=== PATIENT | female | born 1985 | race Caucasian/White ===

== ENCOUNTER → 2018-01-19 | Outpatient (CLI) | payer OTHER ==
[~2018-01-19] MED LIST: AMOX250S73 PO; HYDR473S9 PO; NORG1TAB74 PO
--- NOTE | 2018-01-19 15:30 | EKG ---
FACILITY: [facility] PATIENT NAME: MIREILLE AUSTIN : [id number] MR: [id number] V: [id number] EXAM DATE: ORDERING PHYSICIAN: ABELARDO HORNER TECHNOLOGIST: ENRICO Hanna Reason : TACHY Blood Pressure : / mmHG Vent. Rate : 078 BPM Atrial Rate : 078 BPM P-R Int : 142 ms QRS Dur : 080 ms QT Int : 376 ms P-R-T Axes : 060 030 040 degrees QTc Int : 428 ms Normal sinus rhythm No ST-T abnormalities No previous ECGs available Confirmed by ENRIQUE DEUTSCH ([id number]) on 01/19/2018 4:49:51 PM Referred By: EVENS Confirmed By:ENRIQUE DEUTSCH
== END ==
LOC: RESP 15:00
PROVIDERS: ATTEND Physician Assistant
DX: R00.2 Palpitations (principal); Z3A.30 30 weeks gestation of pregnancy
CPT/HCPCS: 93005

== ENCOUNTER → 2018-03-01 | Outpatient (CLI) | payer OTHER ==
[~2018-03-01] MED LIST changes: +PREN-127 PO
== END ==
LOC: LAB 09:07
PROVIDERS: ATTEND Student in an Organized Health Care Education/Training Program
DX: Z34.83 Encounter for supervision of other normal pregnancy, third trimester (principal)
CPT/HCPCS: 87081

== ENCOUNTER → 2018-03-15 | Outpatient (CLI) | payer OTHER | LOC: LAB 09:55 | PROVIDERS: ATTEND Student in an Organized Health Care Education/Training Program | DX: O42.919 Preterm premature rupture of membranes, unspecified as to length of time between rupture and onset of labor, unspecified trimester (principal) | CPT/HCPCS: 84112 ==

== ENCOUNTER 2018-03-30 19:35 | Inpatient (IN) | payer OTHER ==
[~2018-03-30] VITALS: Ht 157.5 cm; Wt 60.3 kg
[2018-03-30] MEDS ORDERED: FAMOTIDINE(*) 20MG/50ML PREMIX 50 ML IVPB PRN (19:37)
[2018-03-30] MEDS ORDERED: ceFAZolin(*) 2GM/D5W 50ML 50 ML IVPB PRN (19:37)
[2018-03-30] MEDS ORDERED: fentaNYL CITR 100 MCG/2 ML AMP IVP PRN (19:40)
[2018-03-30] MEDS ORDERED: ZOLPIDEM TARTRATE 5 MG TAB PO PRN (19:40)
[2018-03-30] MEDS ORDERED: TERBUTALINE SULF 1 MG/ML VIAL SUBQ PRN (19:40)
[2018-03-30] MEDS ORDERED: LIDOCAINE/SOD BICARB 8.4% SYR SC PRN (19:40)
[2018-03-30] MEDS ORDERED: LIDOCAINE 1% LOCAL 300 MG/30ML INJ PRN (19:40)
[2018-03-30] MEDS ORDERED: DINOPROSTONE 10 MG INSERT PV ONE (19:40)
[2018-03-30] MEDS ORDERED: METOCLOPRAMIDE 10 MG/2 ML SDV IVP PRN (19:40)
[2018-03-30 20:32] LABS: PLATELET COUNT, AUTOMATED 236 K/uL (150-450)
[2018-03-30] MEDS ORDERED: ONDANSETRON 4 MG/2 ML VIAL IVP PRN (23:15)
[2018-03-30] MEDS ORDERED: ACETAMINOPHEN 500 MG TAB PO PRN (23:15)
[2018-03-30 23:46] VITALS: BP 126/88; Ht 157.5 cm; Wt 60.3 kg
[2018-03-31] MEDS ORDERED: CALCIUM CARBONATE 500 MG CHEW PO PRN (03:05)
[2018-03-31] MEDS ORDERED: OXYTOCIN 30 UNIT/D5LR 500 ML 500 ML IV PRN ×2 (06:37→08:32)
[2018-03-31] MEDS ORDERED: MISOPROSTOL 25 MCG CAP PV PRN (06:40)
[2018-03-31] MEDS ORDERED: LIDOCAINE/PF 2% 200MG/10ML AMP 200 MG/10 ML AMPUL EPI PRN (08:35)
[2018-03-31] MEDS ORDERED: BUPIVACAINE 0.25% MPF INJ EPI PRN (08:35)
[2018-03-31] MEDS ORDERED: fentaNYL CITR 100 MCG/2 ML AMP IT PRN (08:35)
[2018-03-31] MEDS ORDERED: BUPIVACAINE 0.5% INJ 30ML VIAL EPI PRN (08:35)
[2018-03-31] MEDS ORDERED: LIDO/EPI 2% MPF 1:200,000 20ML EPI PRN (08:35)
--- NOTE | 2018-03-31 08:56 | History & Physical ---
History of Present Illness Age of Patient: 33 : 1 Para or TPAL: 0 EDC per LMP: Mar 29, 2018 Estimated Gestational Age: 40.2 Chief Complaint Induction History of Present Illness Pt is a 33 y/o @ 40-2/7 weeks gestation who presents to L&D for an IOL. Pt reports that overnight she had some difficulty sleeping secondary to co ntractions. Reports no loss of amniotic fluid. Good movement. No vaginal bleeding. History Patient's Blood Type: O Positive Rubella Status: Non-Immune Group B Strep Screen: Negative Obstetrical History: Past Medical History: Non contributory. Allergies: Coded Allergies: No Known Drug Allergies (Unverified , 06/19/13) Social History: Denies X 3. Family History: FH: diabetes mellitus Paternal Aunt, Age:60s FH: eye disease BROTHER OR SISTER (32) Med Rec Home Meds Reported Medications Vits W-Ca,Fe,Fa(<1MG) ( VITAMINS) 1 Each Tablet, 1 EACH PO DAILY, TAB 01/30/18 Review of Systems All Systems Reviewed/Normal: Yes, Except as Noted Constitutional: No Fever, No Weight Loss, No Weight Gain, No Chills, No Night Sweats, No Other Neurological: No Syncope, No Confusion, No Weakness, No Dizziness, No Slurred Speech, No Other Eyes: No Vision Change, No Loss of Vision, No Photophobia, No Other ENT: No Hearing Loss, No Sinus Congestion, No Sore Throat, No Ear Ache, No Tinnitus, No Other Cardiovascular: No Chest Pain, No Palpitations, No Orthostatic Hypotension, No Other Respiratory: No Shortness of Breath, No Cough, No Wheezing, No Other Gastrointestinal: No Nausea, No Vomiting, No Diarrhea, No Dysphagia, No Constipation, No Early Satiety, No Hematemesis, No Hematochezia, No Melena, No Abdominal Pain, No Other Genitourinary: No Dysuria, No Hematuria, No Urinary Incontinence, No Other Musculoskeletal: No Pain, No Sprain, No Strain, No Impaired Mobility, No Other Psychiatric: No Depression, No Anxiety, No Other Exam General Exam Vital Signs Vital Signs Date Time Temp Pulse Resp B/P (MAP) Pulse Ox O2 Delivery O2 Flow Rate FiO2 03/30/18 23:46 99.0 87 16 126/88 (101) 91 Room Air General Apperance: Alert/Awake/No Acute Distress Neuro: No Gross deficits Eyes: Normal Extraocular Movement & Vison, PERRLA ENT: Normal Cardiovascular: Regular Rate and Rhythm Respiratory: No Respiratory Distress Abdomen: Soft, Non-Tender, Non-Distended : Normal Musculoskeletal: No Weakness/Pain Extremities: No Cyanosis,Clubbing or Edema Integumentary: Skin Intact without Lesions or Rash Psychological: Alert & Oriented X3, Appropriate Mood & Affect Cervical Dialation: 2.5 Cervical Effacement (%): 50 Cervical Consistency: Moderate Cervical Position: Mid Station: -2 Presentation: Vertex Uterine Contractions(Q min): 3 Uterine Contraction Strength: Mild UC Resting Tone: Soft Fetus Feeling Movement?: Yes Estimated Weight(grams): 3000 Heart Tones: 125 Heart Tone Variabilty: Moderate FHT Accelerations: 15X15 FHT Decelerations: None FHT Category: I Medical Decision Making Data Points Result Diagram: 03/30/182016 Pre-Admit Course Medical Record Review: Yes VTE Prophylasis: Adult Deep Vein Thrombosis/Pulmonary: No Assessment and Plan 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 Start oxytocin. Plan for AROM at next cervical check if well engaged head. Epidural when desired. DIAMOND BONE DO Mar 31, 2018 08:56
[2018-03-31] MEDS: LR(*) 1000 ML BAG 1,000 ML IV PRN ×2 (09:05→12:37)
[2018-03-31] MEDS ORDERED: EPIDURAL KEYS XX PRN (10:00)
[2018-03-31] MEDS: FENTANYL/ROPIVACAINE 100 ML BAG EPI PRN ×2 (11:10→17:50)
[2018-03-31] MEDS ORDERED: DLR(*) 1000 ML BAG 1,000 ML IV PRN (12:25)
--- NOTE | 2018-03-31 12:45 | Anesthesia OB Pre-Anes Eval ---
History of Present Illness Anesthesia Start Date: Mar 31, 2018 Anesthesia Start Time: 11:10 OB Anesthesia Diagnosis: induction - elective EDC: Mar 29, 2018 : 1 Para: 0 Pain Ratin Result Diagram: 03/30/182016 Height (Inches): 62.00 Weight (Pounds): 133 BMI Calculated: 24.32 Past Medical History Medical History: other (GERDS) Surgical History: other (sinus, tonsils, egd) Previous Anesthesia: general Attended Childbirth Classes?: No Hx Anesthesia Reactions: Yes (nausea) Home Meds Reported Medications Vits W-Ca,Fe,Fa(<1MG) ( VITAMINS) 1 Each Tablet, 1 EACH PO DAILY, TAB 01/30/18 Allergies: Coded Allergies: No Known Drug Allergies (Unverified , 06/19/13) Anesthesia OB ROS Eyes ROS: other (na) Airway Class: ll GI ROS: clear liquids ASA Classification: 2, E Assessment and Plan Anesthesia Plan: LEB Assessment: questions invited MAXIMINO PAPPAS CRNA Mar 31, 2018 12:45
--- NOTE | 2018-03-31 12:54 | Procedure Note ---
Anesthetic Placement Note Anesthesia Plan: LEB Permit for Anesthesia Signed: Yes Anesthesia Technique: Patient Sitting Anesthesia Prep: Betadine Interspace: L 3-4 Local Anesthetic: 1% Lidocaine Amount Local - cc's: 8 Anesthesia Needle: 17g Touhy/Schliff Anesthesia Attempts: 3 Loss of Resistance: Air Depth of TYLER (cm): 3.4 Catheter Insertion (cm): 5 Catheter Type: [place] - Spring Wound Epidural Dressing: Tegaderm Anesthesia Tray: Lot Number ([id number]), Expiration Date (2019-03-17), Reference Number [id number]) Comment: pt denies scoliosis, muscle left of midline more pronounced which gives the appearance of scoliosis. she has had this evaluated and told she does not have scoliosis. unable to place at L2-3 moved to L3-4 and was successful. A good block was obtained. Anesthesia Medications: Epidural Test Dose: 1.5 Lido/Epi (1:200,000), Dose - mL (5), Time (1131), Negative Epidural Loading Dose: 0.2% Ropivicaine, With Fentanyl 2mcg/ml, Dose - ml (9), Time (1137), Other (plus fentanyl 100 mcgs) Epidural Infusion: 0.2% Ropivicaine, With Fentanyl 2mcg/ml, Start Time: (1146) Epidural Pump Setting: Bolus Dose - mL (5), Lockout - Minutes (10), Maintenance Rate - mL/hr (9), Maximum per Hour - mL (19) Complications: None Comment: pain score 1-2 MAXIMINO PAPPAS CRNA Mar 31, 2018 12:54
--- NOTE | 2018-03-31 13:03 | Labor Progress Note ---
Labor Subjective Progress Notes Subjective Feeling better s/p epidural. 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 Pt also received epidural. Increase oxytocin to adequate contraction pattern. DIAMOND BONE DO Mar 31, 2018 13:03
--- NOTE | 2018-03-31 15:49 | Labor Progress Note ---
Labor Subjective Progress Notes Subjective Comfortable with epidural. Pressure is increasing. Feeling Movement?: No Vaginal Discharge/Fluid: Bloody Show Labor Pain: Mild Neurological: No Headache, No Other Eyes: No Visual Disturbances Labor Objective Vital Signs Vital Signs Date Time Temp Pulse Resp B/P (MAP) Pulse Ox O2 Delivery O2 Flow Rate FiO2 03/30/18 23:46 99.0 87 16 126/88 (101) 91 Room Air Vaginal Discharge/Fluid?: Bloody Show, Clear Fluid Cervical Dialation: 7 Cervical Effacement (%): 80 Cervical Consistency: Soft Cervical Position: Anterior Station: -2 Presentation: Vertex Uterine Contractions(Q min): 2 Fetus FHT Category: I Other Result Diagram: 03/30/182016 Assessment and Plan 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 Increase oxytocin as necessary for adequate contraction pattern. DIAMOND BONE DO Mar 31, 2018 15:49
--- NOTE | 2018-03-31 16:33 | Anesthesia Progress Note ---
Progress/Maintenance Anesthesia Note Date: Mar 31, 2018 Anesthesia Note Time: 15:50 Pain Intensity: 0 Pump: Off Anesthesia Treatment: battery failure on pump. will bolus from now until delivery as needed. MAXIMINO PAPPAS CRNA Mar 31, 2018 16:33
--- NOTE | 2018-03-31 17:22 | Anesthesia Progress Note ---
Progress/Maintenance Anesthesia Note Date: Mar 31, 2018 Anesthesia Note Time: 17:15 Pain Intensity: 2 Pump: Off Drug Bolus: 0.2% Ropivicaine, Fentanyl 2mcg/ml Anesthesia Treatment: bolus o.2% ropivicaine with fentanyl 8 ml MAXIMINO PAPPAS CRNA Mar 31, 2018 17:22
--- NOTE | 2018-03-31 18:01 | Anesthesia Progress Note ---
Progress/Maintenance Anesthesia Note Date: Mar 31, 2018 Anesthesia Note Time: 17:57 Pain Intensity: 7 Pump: Off Drug Bolus: 0.2% Ropivicaine, Fentanyl 2mcg/ml Anesthesia Treatment: bolus of 8 ml plus fentanyl 100mcgs MAXIMINO PAPPAS CRNA Mar 31, 2018 18:01
--- NOTE | 2018-03-31 19:04 | Labor Progress Note ---
Labor Subjective Progress Notes Subjective Complete and pushing. Feeling much better after epidural rebolus. Feeling Movement?: Yes Vaginal Discharge/Fluid: Bloody Show Labor Pain: Mild Neurological: No Headache, No Other Eyes: No Visual Disturbances Labor Objective Vital Signs Vital Signs Date Time Temp Pulse Resp B/P (MAP) Pulse Ox O2 Delivery O2 Flow Rate FiO2 03/30/18 23:46 99.0 87 16 126/88 (101) 91 Room Air Cervical Dialation: 10 Cervical Effacement (%): 100 Cervical Consistency: Soft Cervical Position: Anterior Station: +1 Presentation: Vertex Uterine Contractions(Q min): 2 Uterine Contraction Strength: Moderate Fetus Heart Tone Variabilty: Moderate FHT Accelerations: 15X15 FHT Decelerations: Variable Other Result Diagram: 03/30/182016 Assessment and Plan Problems: (1) 40 WEEKS GESTATION OF (2) Elective induction of labor planned Status: Acute Assessment & Plan: Pt pushing. Expect . 2 temps in the last 10 minutes 100.4 and 100.9. No tachycardia. No purulent amniotic fluid. No abdominal tenderness. Will continue to monitor for possible chorioamnionitis. DIAMOND BONE DO Mar 31, 2018 19:04
[2018-03-31] MEDS ORDERED: ACETAMINOPHEN 325 MG TAB PO PRN (20:05)
[2018-03-31] MEDS ORDERED: APAP/HYDROCODONE 325/5 TAB PO PRN (20:05)
[2018-03-31] MEDS ORDERED: GLYCERIN/WITCH HAZEL LEAF 1 PK TOP PRN (20:05)
[2018-03-31] MEDS ORDERED: MAGNESIUM HYDROXIDE* 30ML UDCP PO PRN (20:05)
[2018-03-31] MEDS ORDERED: BENZOCAINE 20% 60 ML BTL TP PRN (20:05)
[2018-03-31] MEDS ORDERED: INFLUENZA VIRUS VAC 0.5 ML SYR IM ONLY ONE (20:05)
[2018-03-31] MEDS ORDERED: LANOLIN OINT 7 GM TUBE TP PRN (20:05)
[2018-03-31] MEDS ORDERED: HYDROCORTISONE 2.5% CR 30GM TB PR PRN (20:05)
[2018-03-31] MEDS: DOCUSATE CALCIUM 240 MG CAP PO SCH (21:09)
[2018-03-31] MEDS: IBUPROFEN 800 MG TAB PO SCH (21:09)
--- NOTE | 2018-03-31 21:24 | OPERATIVE REPORT 1 ---
EVENT DATE: March 31, 2018 SURGEON: Joao Daugherty DO ANESTHESIOLOGIST: ANESTHESIA: Epidural. FOUNDATION ENGINEER: PREOPERATIVE DIAGNOSIS 1. A 33-year-old 1, para 0 at 40-2/7 weeks gestation. 2. Induction of labor. POSTOPERATIVE DIAGNOSIS 1. A 33-year-old 1, para 0 at 40-2/7 weeks gestation. 2. Induction of labor. 3. Delivery. PROCEDURE PERFORMED Spontaneous vaginal delivery with repair of second degree midline laceration. FINDINGS Liveborn male at 1934 hours with Apgars of 6 and 8, weight 7#0oz 3176 gm. Three vessel cord, intact placenta, over second degree midline laceration with a double nuchal cord reduced at the time of delivery. ESTIMATED BLOOD LOSS 400 mL. PATHOLOGY None. COMPLICATIONS None known. CONDITION Stable x2. Mother and infant remained in the LDRP. COUNTS Correct x2 for all needles, laps, sponges and instruments. LABOR SUMMARY Patient is a 33-year-old 1, para 0 who presented to labor and delivery for induction of labor at 40 weeks and 1 day gestation. She did receive Cervidil overnight as she was 2 cm, 50% effaced with -3 station. Overnight she began to contract spontaneously. Cervidil was removed. Approximately 12 hours later she was started on oxytocin and began to contract regularly. She did have spontaneous rupture of membranes and did require a few hours later rupture of a forebag. Patient continued to progress with oxytocin, eventually was noted to be complete and -1 station. Short laboring down process and then the patient began pushing. With the staff coaching the patient on pushing, after approximately 1-1/2 hour pushing, the delivery team was called and assembled. DELIVERY SUMMARY The patient was placed in the dorsal lithotomy position, prepped and draped in the usual sterile manner. Upon maternal pushing in the head delivered in a controlled manner, followed by anterior shoulder with a gentle downward motion, posterior shoulder in a gentle upward motion, with the remainder of the infant's body delivered spontaneously. The mouth and nose were bulb suctioned. The cord was clamped x2 and cut by the 's father, at which time oxytocin was infused to help with uterine tone. The uterus was massaged and deemed firm. Upon inspection of the perineum, vagina, cervix and labia, it was noted that there was a second degree midline laceration. This was repaired with 3-0 Vicryl in the usual manner. With the laceration repaired, it was inspected and noted to be hemostatic. At this point the patient was cleaned, the labor bed was reassembled and the mother and were allowed to continue to bajwa. KATIE
[2018-03-31 23:00] VITALS: BP 110/76
[2018-04-01 03:00] VITALS: BP 118/66
[2018-04-01] MEDS: IBUPROFEN 800 MG TAB PO SCH ×3 (05:16→20:58)
[2018-04-01 08:30] VITALS: BP 126/80
--- NOTE | 2018-04-01 08:34 | Anesthesia Post Eval Note ---
Anesthesia Post Eval Note Pt able to participate in Eval: Yes Cardiovascular Status: Satisfactory Respiratory Status: Satisfactory Pain Managment: Satisfactory PO Nausea/Vomiting: Satisfactory Temperature Management: Satisfactory Mental Status: Satisfactory Post-Op Hydration Status: Satisfactory Anesthesia Type: LEB Anesthesia Tolerance: doing well no problems noted. MAXIMINO PAPPAS CRNA Apr 01, 2018 08:34
[2018-04-01] MEDS: DOCUSATE CALCIUM 240 MG CAP PO SCH ×2 (08:44→20:58)
--- NOTE | 2018-04-01 09:40 | OB/GYN Progress Note ---
OB Subjective Progress Notes Subjective Doing good this morning. Reports pain controlled with po pain medication. Tolerating regular diet. Ambulatory in room only. Lochia appropriate. . GI: NEG Nausea, NEG Vomiting, NEG Flatus, NEG Bowel Movement : Voiding Well Pain: Mild Neurological: No Headache, No Other Eyes: No Visual Disturbances OB Objective Physical Exam Vital Signs Date Time Temp Pulse Resp B/P (MAP) Pulse Ox O2 Delivery O2 Flow Rate FiO2 04/01/18 03:00 97.6 63 13 118/66 (83) 94 Room Air Intake and Output 04/01/18 07:00 Intake Total 1070 ml Output Total 500 ml Balance 570 ml Intake Oral 120 ml IV Total 950 ml Output Urine Total 500 ml General Appearance: Alert/Awake/No Acute Distress Neurological: No Gross deficits Eyes: Normal Extraocular Movement & Vison, PERRLA ENT: Normal Neck: No Masses Cardiovascular: Normal Rhythm & Peripheral Pulses Respiratory: No Respiratory Distress, Clear to Auscultation Abdomen: Soft, Non-Tender, Non-Distended, Fundus Firm Extremities: No Cyanosis,Clubbing or Edema Integumentary: Skin Intact without Lesions or Rash Psychological: Alert & Oriented X3, Appropriate Mood & Affect Result Diagram: 04/01/18 0625 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 Plasterer Maintenance desires to keep infant one more day. Will plan for discharge Tuesday04/02/18. (2) Elective induction of labor planned Status: Resolved DIAMOND BONE DO Apr 01, 2018 09:40
[2018-04-01 18:00] VITALS: BP 126/81
[2018-04-01 20:00] VITALS: BP 139/88
[2018-04-02] MEDS: IBUPROFEN 800 MG TAB PO SCH (05:14)
[2018-04-02 07:30] VITALS: BP 117/81
[2018-04-02] MEDS ORDERED: DIPHTH/TETANUS/ACEL. PERTUSSIS IM ONLY ONE (09:00)
[2018-04-02] MEDS ORDERED: MEASLES,MUMP,RUBELLA VAC 0.5ML SUBQ ONE (09:00)
[2018-04-02] MEDS: DOCUSATE CALCIUM 240 MG CAP PO SCH (09:24)
--- NOTE | 2018-04-02 10:46 | OB/GYN Progress Note ---
OB Subjective Progress Notes Subjective Doing good this morning. Reports pain controlled with po pain medication. Tolerating regular diet. Voiding with out any difficulty. Bleeding appropriate. Tolerating . GI: NEG Nausea, NEG Vomiting, NEG Flatus, NEG Bowel Movement : Voiding Well, Vaginal Bleeding, Scant Pain: Mild Neurological: No Headache, No Other Eyes: No Visual Disturbances OB Objective Physical Exam Vital Signs Date Time Temp Pulse Resp B/P (MAP) Pulse Ox O2 Delivery O2 Flow Rate FiO2 04/02/18 07:30 97.9 69 18 117/81 (93) 04/01/18 20:00 95 Room Air Intake and Output 04/02/18 07:00 Intake Total 2661 ml Balance 2661 ml Intake Oral 236 ml IV Total 2425 ml # Voids 1 General Appearance: Alert/Awake/No Acute Distress Neurological: No Gross deficits Eyes: Normal Extraocular Movement & Vison, PERRLA ENT: Normal Neck: No Masses Cardiovascular: Normal Rhythm & Peripheral Pulses, Regular Rate and Rhythm Respiratory: No Respiratory Distress, Clear to Auscultation Abdomen: Soft, Non-Tender, Non-Distended, Fundus Firm Extremities: No Cyanosis,Clubbing or Edema Integumentary: Skin Intact without Lesions or Rash Psychological: Alert & Oriented X3, Appropriate Mood & Affect Result Diagram: 04/01/18 0625 Assessment and Plan Problems: (1) 40 WEEKS GESTATION OF Status: Resolved Assessment & Plan: Plan for discharge today. Meeting post goals. Follow up in 2-3 weeks. (2) Elective induction of labor planned Status: Resolved DIAMOND BONE DO Apr 02, 2018 10:45
[2018-04-02] MEDS ORDERED: IBUP800T37 PO (10:47)
[2018-04-02] MEDS ORDERED: LOR5/325 PO (10:47)
--- NOTE | 2018-04-02 10:49 | OB/GYN Discharge Summary ---
Discharge Summary Reason for Hosp/Final Diag: (1) 40 WEEKS GESTATION OF Status: Resolved (2) Elective induction of labor planned Status: Resolved Hospital Course & Plan: Pt presented to L&d for a scheduled IOL. Underwent induction with out any difficulty. See delivery note for details of procedure. Pt remained in the PP unit for 2 days. She was meeting post goals and was discharged home. Lates Vital Signs Vital Signs Date Time Temp Pulse Resp B/P (MAP) Pulse Ox O2 Delivery O2 Flow Rate FiO2 04/02/18 07:30 97.9 69 18 117/81 (93) 04/01/18 20:00 95 Room Air Weight (Pounds): 133 Result Diagram: 04/01/18624 Condition: Improved Discharge: Home Home Meds Active Scripts Ibuprofen (IBUPROFEN) 800 Mg Tablet, 800 MG PO Q8H@0500,1300,2100, #20 TAB 0 Refills Prov:DIAMOND BONE DO 04/02/18 Hydrocodone Bit/Acetaminophen (HYDROCODON-ACETAMINOPHEN 5-325) 1 Each Tablet, 1- 2 EACH PO Q4H PRN for PAIN, #20 TAB 0 Refills Prov:DIAMOND BONE DO 04/02/18 Reported Medications Vits W-Ca,Fe,Fa(<1MG) ( VITAMINS) 1 Each Tablet, 1 EACH PO DAILY, TAB 01/30/18 Follow up with: [facility] [phone], Dr. Bone [phone] Follow up in: 6 wks PP or PO, 2 wks PO Discharge Diet: As Tolerates, Resume Prior Admit Diet Discharge Activity: As Tolerates Special Instructions: Please followup with your OB provider as has been discussed with Dr. Bone. Call the [facility] or Family Care unit as needed. DIAMOND BONE DO Apr 02, 2018 10:49
== END 2018-04-02 11:50 | disposition home or self-care (01) | DRG 775 ==
LOC: OB 19:35
PROVIDERS: ADMIT Obstetrics & Gynecology; ATTEND Obstetrics & Gynecology
PROC: 3E0P7VZ Introduction of Hormone into Female Reproductive, Via Natural or Artificial Opening (ICD-10-PCS; 2018-03-30)
PROC: 10E0XZZ Delivery of Products of Conception, External Approach (ICD-10-PCS; principal; 2018-03-31)
PROC: 0KQM0ZZ Repair Perineum Muscle, Open Approach (ICD-10-PCS; 2018-03-31)
PROC: 10907ZC Drainage of Amniotic Fluid, Therapeutic from Products of Conception, Via Natural or Artificial Opening (ICD-10-PCS; 2018-03-31)
DX: O70.1 Second degree perineal laceration during delivery (principal); Z37.0 Single live birth; O69.81X0 Labor and delivery complicated by cord around neck, without compression, not applicable or unspecified; Z3A.40 40 weeks gestation of pregnancy
CPT/HCPCS: 36415; 85025; 85027; 86703; 86850; 86900; 86901; 90707; J2590; J3010; J7120

== ENCOUNTER → 2018-04-11 | Outpatient (CLI) | payer OTHER ==
[2018-03-30 23:46] VITALS: BMI 24.3
[~2018-04-11] MED LIST changes: +CEPH500T7 PO; +IBUP800T37 PO; +LOR5/325 PO
== END ==
LOC: LAB 16:14
PROVIDERS: ATTEND Student in an Organized Health Care Education/Training Program
DX: R30.0 Dysuria (principal)
CPT/HCPCS: 87088

== ENCOUNTER → 2019-03-02 | Outpatient (CLI) | payer OTHER ==
[2018-03-30 23:46] VITALS: BMI 24.3
[~2019-03-02] MED LIST changes: +ESCI10TA8 PO; +ESCI20TA38 PO; +ESCI20TA8 PO; +FLU60VIA41 IM; +SERT-1 PO; +SERT-173 PO; +SULF-198 PO
[2019-03-02 09:52] LABS: PLATELET COUNT, AUTOMATED 278 K/uL (150-450)
== END ==
LOC: LAB 08:26
PROVIDERS: ATTEND Student in an Organized Health Care Education/Training Program
DX: Z34.81 Encounter for supervision of other normal pregnancy, first trimester (principal)
CPT/HCPCS: 36415; 81001; 85025; 86592; 86703; 86762; 86850; 86900; 86901; 87088; 87340